=== PATIENT | female | born 1975 | race Caucasian/White ===

== ENCOUNTER 2020-07-19 15:26 | Emergency (ER) | payer OTHER ==
[~2020-07-19] VITALS: Ht 182.9 cm; Wt 138.6 kg
[~2020-07-19 15:26] MED LIST: CELEBREX100 M1 PO; CEPHALEXIN500 MG PO; EFFEXOR XR75 MG PO; FLEXERIL5 MG PO; LYRICA50 MG PO; NORCO1 TA1 PO
[2020-07-19 16:58] LABS: HEMATOCRIT 51.5 % (37.0-47.0); HEMOGLOBIN 17.4 g/dl (12.0-16.0); MEAN CELL VOLUME 82.7 fL CALC (80.0-100.0); MEAN CORPUSCULAR HGB 27.9 pG CALC (26.0-32.0); MEAN CORPUSCULAR HGB CONC 33.8 g/dL CAL (32.0-36.0); NEUT# 8.09 thou/uL (2.00-7.15); RED BLOOD COUNT 6.23 mill/uL (4.20-5.60)
[2020-07-19 17:13] LABS: URINE BLOOD DIPSTICK NEGATIVE (NEGATIVE); URINE COLOR YELLOW; URINE GLUCOSE - DIPSTICK >=1000 mg/dL (NEGATIVE); URINE KETONE 40 mg/dL (NEGATIVE); URINE LEUK ESTERASE NEGATIVE (NEGATIVE); URINE NITRITE - DIPSTICK NEGATIVE (Negative); URINE PH 5.5 (4.5-8.0); URINE PROTEIN - DIPSTICK NEGATIVE (NEG-TRACE); URINE SPECIFIC GRAVITY 1.015; URINE UROBILINOGEN - DIPSTICK 0.2 E.U./dL (0.2)
[2020-07-19 17:16] LABS: ALBUMIN 4.3 g/dL (3.2-5.0); ALKALINE PHOSPHATASE 74 u/l (38-126); BILIRUBIN, TOTAL 1.7 mg/dL (0.0-1.4); BUN 19 mg/dL (7-17); BUN/CREATININE RATIO 26 (12-20 (CALC)); CHLORIDE 93 mmol/l (95-108); CREATININE 0.7 mg/dL (0.5-1.0); GFR > 60 ML/MIN (>=60 (CALC)); GFR FOR AFR.AMER. > 60 ML/MIN (>=60 (CALC)); POTASSIUM 5.1 mmol/l (3.5-5.1); SGOT/AST 15 u/l (14-36); TOTAL PROTEIN 7.5 g/dL (6.3-8.2)
[2020-07-19 17:17] LABS: URINE BILIRUBIN - DIPSTICK NEGATIVE (NEGATIVE)
[2020-07-19 17:18] LABS: ANION GAP 19 (6-22 (CALC)); CARBON DIOXIDE 22 mmol/l (22-30); SODIUM 129 mmol/l (137-146)
[2020-07-19] MEDS ORDERED: PHENERGAN25 MG/TAB PO (19:03)
[2020-07-19] MEDS ORDERED: ONDANSETRON4 MG PO (19:03)
[2020-07-19 20:05] VITALS: BP 142/70
== END 2020-07-19 20:05 | disposition home or self-care (01) | DRG 392 ==
LOC: ED 15:26
PROVIDERS: Family Medicine
DX: R11.2 Nausea with vomiting, unspecified (principal); R52 Pain, unspecified; R68.83 Chills (without fever); I10 Essential (primary) hypertension; E11.40 Type 2 diabetes mellitus with diabetic neuropathy, unspecified; E78.5 Hyperlipidemia, unspecified; Z20.828 Contact with and (suspected) exposure to other viral communicable diseases